=== PATIENT | female | born 1945 | race Native Hawaiian/Other Pacific Islander ===

== ENCOUNTER 2018-11-28 07:05 | Day surgery (SDC) | payer MEDICARE, OTHER ==
[2018-11-25 09:27] VITALS: BMI 28.7
[2018-11-28] MEDS ORDERED: Lactated Ringer's 1,000 ML IV ONE (08:00)
--- NOTE | 2018-11-28 08:05 | CP.SDSHP ---
Same Day Surgery H & P - History Proposed Procedure: Screening colonoscopy Pre-Op Diagnosis: Screening for colorectal cancer - Previous Medical/Surgical History Cardiac: Hypertension Comments: Hyperlipidemia Previous Surgical History: Carpal tunnel release - Allergies Allergies: Allergies amoxicillin trihydrate [From Augmentin] Allergy (Verified 11/25/18 09:27) RASH potassium clavulanate [From Augmentin] Allergy (Verified 11/25/18 09:27) RASH - Current Medications Current Medications: See reconciliation sheet - Physical Exam General Appearance: WD WN female in NAD Vital Signs: Vital Signs 11/28/18 11/28/18 07:15 07:32 Temperature 99.1 F Pulse Rate 80 80 Respiratory 20 Rate Blood Pressure 172/80 H O2 Sat by Pulse 100 Oximetry Mental Status: Alert & Oriented x3 Neuro: WNL Heart: WNL Lungs: WNL GI: WNL - {Optional Preform as Required} Abdomen: WNL - Impression Impression: Screening for colorectal cancer Pt. Evaluated Today:Candidate for Anesthesia & Procedure: Yes - Date & Time Date: 11/28/18 Time: 08:05 Short Stay Discharge - Short Stay Discharge Admitting Diagnosis/Reason for Visit: ENCOUNTER FOR SCREENING FOR MALIGNANT NEOPLASM OF Disposition: HOME/ ROUTINE
[2018-11-28] MEDS ORDERED: Propofol 10 mg/ml Inj (20 ML) ONE (08:07)
[2018-11-28 09:33] VITALS: RESP 16; TEMP 97.7; O2SAT 98
[2018-11-28 09:37] VITALS: BP 120/74; PULSE 76
== END 2018-11-28 09:50 | disposition home or self-care (01) ==
LOC: C.ENDO 07:05
PROVIDERS: ATTEND Internal Medicine Gastroenterology
DX: K63.5 Polyp of colon (principal); Z12.11 Encounter for screening for malignant neoplasm of colon; K64.0 First degree hemorrhoids; K57.30 Diverticulosis of large intestine without perforation or abscess without bleeding; Z88.0 Allergy status to penicillin; I10 Essential (primary) hypertension
CPT/HCPCS: 45380; 88305; J2704; J7120